=== PATIENT | female | born 1985 | race Caucasian/White ===

== ENCOUNTER 2017-11-06 09:37 | Emergency (ER) | payer OTHER ==
[2017-11-06 11:01] VITALS: BMI 25.8
[2017-11-06] MEDS ORDERED: Lactated Ringer's 1,000 ML IV SCH (11:15)
[2017-11-06 11:50] LABS: SQUAMOUS EPITHIAL 3 /hpf (0-5); URINE BACTERIA OCC (<OCC); URINE BILIRUBIN NEGATIVE (NEGATIVE); URINE BLOOD SMALL (NEGATIVE); URINE CLARITY CLOUDY (Clear); URINE COLOR YELLOW (YELLOW); URINE GLUCOSE (UA) NEG (Normal); URINE LEUKOCYTE ESTERASE SMALL Leu/uL (Negative); URINE PROTEIN NEGATIVE (NEGATIVE); URINE UROBILINOGEN 0.2-1.0 mg/dL (0.2-1.0)
--- NOTE | 2017-11-06 12:50 | US ---
Date of service: 11/06/17 Indication: vaginal spotting at 27 wks ; cervical length only Technique: Limited sonography for cervical length measurement only. Comparison: Ob transvaginal ultrasound performed 10/09/16 Findings: There is a single live intrauterine gestation. The fetus is in transverse position. The placenta is posterior. M-mode imaging demonstrates a heart rate to be 137.2 beats per min. Cervical length measures approximately 4.5 cm. Impression: Cervical length measures approximately 4.5 cm.
== END 2017-11-06 13:45 | disposition home or self-care (01) ==
LOC: H.EROB2 09:37
DX: O26.852 Spotting complicating pregnancy, second trimester (principal); Z3A.27 27 weeks gestation of pregnancy; O26.92 Pregnancy related conditions, unspecified, second trimester; E07.9 Disorder of thyroid, unspecified
CPT/HCPCS: 76817; 81003; 87086; 99283; J7120

== ENCOUNTER 2018-01-25 05:58 | Inpatient (IN) | payer OTHER ==
[2018-01-25 06:50] VITALS: BMI 26.9
[2018-01-25] MEDS ORDERED: Lactated Ringer's 1,000 ML IV ONE (06:52)
[2018-01-25] MEDS ORDERED: Oxytocin 30 UNIT 30 UNITS/500 ML BAG IV ONE (06:55)
[2018-01-25] MEDS ORDERED: OXYTOCIN/0.9 % NS 20 UNIT/1,000 ML BAG IV ONE (06:56)
[2018-01-25] MEDS: Lactated Ringer's 1,000 ML IV ONE ×2 (07:30→13:00)
[2018-01-25] MEDS ORDERED: Fentanyl/Bupivacaine HCl 250 ML EPI ONE (08:30)
[2018-01-25 09:01] LABS: BASO # 0.1 K/uL (0.0-0.2); BASO % 0.3 % (0.0-2.0); HEMOGLOBIN 13.2 g/dL (12.0-16.0); LYMPH # 1.1 K/uL (1.0-4.3); LYMPH % 5.7 % (20.0-40.0); MEAN CELL VOLUME 90.9 fl (81.0-99.0); MEAN CORPUSCULAR HEMOGLOBIN 29.3 pg (27.0-31.0); MEAN CORPUSCULAR HGB CONC 32.2 g/dL (33.0-37.0); MONO # 0.6 K/uL (0.0-0.8); NEUT # 17.1 K/uL (1.8-7.0); NRBC % 0.1 % (0.0-0.0); PLATELET COUNT 224 K/uL (130-400); RED CELL DISTRIBUTION WIDTH 13.6 % (11.5-14.5); WHITE BLOOD COUNT 18.8 K/uL (4.8-10.8)
[2018-01-25 09:16] LABS: BLOOD UREA NITROGEN 4 mg/dl (7-17); CALCIUM 9.2 mg/dL (8.4-10.2); GFR NON-AFRICAN AMERICAN > 60
[2018-01-25 09:58] LABS: BANDS 3 % (0-2); LYMPHOCYTE 4 % (20-50); MONOCYTE 2 % (0-10); NEUTROPHIL 91 % (42-75); TOTAL CELLS COUNTED 100
[2018-01-25 09:59] LABS: PLATELET ESTIMATE NORMAL (NORMAL)
--- NOTE | 2018-01-25 11:55 | OBPN ---
Datetime: 01/25/2018 11:51 IP Progress Impression: Normal progression of labor IP Procedures: Sterile Vag Exam IP Progress Plan: Continue present management Membranes, Provider: Ruptured Amniotic Fluid Color, Provider: Clear FHR - Baseline A Provider: 120's IP Progress Note Comment: 32 yo at 39+2 wks in labor Anticipate VD NICHD Variability Prov Fetus A: Moderate 6-25bpm Dilatation, Provider: 10 Effacement, Provider: 100 Station, Provider: 1 NICHD Decel Fetus A IP Provider: None
[2018-01-25] MEDS ORDERED: Oxycodone/Acetaminophen 5/325 mg Tab PO PRN (15:12)
[2018-01-25] MEDS ORDERED: Benzocaine/Menthol SPRAY TOP PRN (15:12)
--- NOTE | 2018-01-25 15:24 | OBDS ---
DELIVERY PERSONNEL Delivery Doctor: Benigno MANZANARES Scrub Nurse: beck Soldering Machine Operator Automatic: KIEL Jurado/Violet Cole RN Anesthesiologist: MD Erik Resident: Dr Castillo MATERNAL INFORMATION Delivery Anesthesia: Epidural Medications in Delivery: pitocin Placenta Cultured: No Maternal Complications: None RN Comments: to alive baby boy;apgar9/9; with complete delivery of placenta; lacerations repair ed; uneventful delivery Provider Comments: Pt progressed to complete and delivered a viable male infant in OA position throu gh clear fluid at 1448. Apgars 9 and 9. Wt 3070 gms, 6#12.2. Cord doubly clamped and FOB cut the c ord. Cord blood collected. 2% lidocaine was injected into vagina and perineum. Interrupted stitch es were placed to close 2 periurthral tears, (one to the right and one directly above the urethra). 2-0, 3-0 rapide and 3-0v were used to repair second degree tear. Pt and baby tolerated procedure wel l. No complications. EBL 100mL LABOR SUMMARY EDC: 01/30/2018 00:00 No. Babies in Womb: 1 Attempted: No Labor Anesthesia: Epidural LABOR INFORMATION Onset of Labor: 01/25/2018 04:30 Complete Dilatation: 01/25/2018 11:45 Other Ripening Agents: na Oxytocin: N/A Group B Beta Strep: Negative Antibiotics # of Doses: na Antibiotics Time of Last Dose: na Steroids Given: None Reason Steroids Not Administered: Not Applicable MEMBRANES Membranes Rupture Method: Spontaneous Rupture of Membranes: 01/25/2018 06:00 Length of Rupture (hrs): 8.80 Amniotic Fluid Color: Clear Amniotic Fluid Amount: Small Amniotic Fluid Odor: Normal STAGES OF LABOR Stage 1 hrs: 7 Stage 1 min: 15 Stage 2 hrs: 3 Stage 2 min: 3 Stage 3 hrs: 0 Stage 3 min: 3 Total Time in Labor hrs: 10 Total Time in Labor min: 21 VAGINAL DELIVERY Episiotomy: None Laceration Extension: Second Degree Laceration Type: Vaginal Other Laceration: two small periurethral tear Laceration Repair: Yes Laceration Repair Note: 2% lidocaine was injected into vagina and perineum. Interrupted stitches w ere placed to close 2 periurthral tears, (one to the right and one directly above the urethra). 2-0, 3-0 rapide and 3-0v were used to repair second degree tear. Initial Vag Sponge Count: 6 Final Vag Sponge Count: 6 Initial Vag Sharps Count: 4 Final Vag Sharps Count: 4 Sponge Count Correct: Yes Sharps Count Correct: Yes Count Comment: correct count BABY A INFORMATION Delivery Date/Time: 01/25/2018 14:48 Born in Route : No : N/A Forceps: N/A Vacuum Extraction: N/A Shoulder Dystocia : No SHOULDER DYSTOCIA BABY A Delivery Date/Time: 01/25/2018 14:48 PRESENTATION/POSITION BABY A Presentation: Cephalic Cephalic Presentation: Vertex Vertex Position: Left Occipital Anterior Breech Presentation: N/A PLACENTA INFORMATION BABY A Placenta Delivery Time : 01/25/2018 14:51 Placenta Method of Delivery: Spontaneous Placenta Status: Delivered SCORES BABY A Heart Rate 1 min: >100 bpm Resp Effort 1 min: Good Cry Reflex Irritability 1 min: Cough or Sneeze or Pulls Away Muscle Tone 1 min: Active Motion Color 1 min: Body [place], Extremities Blue SCORE 1 MIN: 9 Heart Rate 5 min: >100 bpm Resp Effort 5 min: Good Cry Reflex Irritability 5 min: Cough or Sneeze or Pulls Away Muscle Tone 5 min: Active Motion Color 5 min: Body [place], Extremities Blue SCORE 5 MIN: 9 INFANT INFORMATION BABY A Gestational Age at Delivery: 39.0 Gestational Status: Term Infant Outcome : Liveborn Condition : Stable Infant Sex: Male IDENTIFICATION/MEDS BABY A ID Band Number: [id number] ID Band Location: Left Leg; Left Arm WEIGHT/LENGTH BABY A Birthweight (gms): 3070 Weight (lb): 6 Weight (oz): 12 CORD INFORMATION BABY A No. Cord Vessels: 3 Nuchal Cord : Around Neck x1, Loose Nuchal Cord Other: na True Knot: na Infant Cord pH Baby Arterial: na Infant Cord pH Baby Venous: na Cord Blood Taken: Yes Banking/Donate Info: na Suction: None
[2018-01-25] MEDS: Levothyroxine 50 MCG TAB PO SCH (20:13)
[2018-01-26 06:15] LABS: BASO % 0.1 % (0.0-2.0); EOS # 0.2 K/uL (0.0-0.7); HEMOGLOBIN 11.1 g/dL (12.0-16.0); LYMPH # 2.5 K/uL (1.0-4.3); LYMPH % 15.8 % (20.0-40.0); MEAN CELL VOLUME 90.3 fl (81.0-99.0); MEAN CORPUSCULAR HEMOGLOBIN 29.5 pg (27.0-31.0); MEAN CORPUSCULAR HGB CONC 32.6 g/dL (33.0-37.0); MEAN PLATELET VOLUME 9.2 fl (7.2-11.7); MONO # 1.3 K/uL (0.0-0.8); MONO % 8.1 % (0.0-10.0); NEUT # 12.1 K/uL (1.8-7.0); RBC 3.76 Mil/uL (3.80-5.20); RED CELL DISTRIBUTION WIDTH 13.8 % (11.5-14.5); WHITE BLOOD COUNT 16.1 K/uL (4.8-10.8)
[2018-01-26] MEDS: Levothyroxine 50 MCG TAB PO SCH (06:18)
--- NOTE | 2018-01-26 12:05 | OBPPN ---
Datetime: 01/26/2018 09:35 PP Pain Prov: Within normal limits PP Nausea Prov: Denies PP Flatus Prov: Yes PP BM Prov: Yes PP Breasts Prov: Normal PP Heart Prov: Normal PP Lungs Prov: Normal PP Abdomen/Uterus Prov: Normal PP Lochia Prov: Normal PP Vulva/Perineum Prov: Normal PP CVA Tenderness Prov: Normal PP Extremities Prov: Normal PP Progress Prov: Normal PP Impression Prov: Normal progression PP Plan Prov: Continue present management PP Progress Note Prov: H/H A: S/P day 1 PLAN cont post care anticipate discharge in AM
[2018-01-26] MEDS ORDERED: Influenza Vaccine (5 YR UP)/PF 60 MCG/0.5 ML SYR IM ONE (12:14)
--- NOTE | 2018-01-26 12:29 | OBADHP ---
Datetime: 01/25/2018 11:51 Amniotic Fluid Color, Provider: Clear Membranes, Provider: Ruptured Datetime: 01/25/2018 06:45 Admit Comment, IP Provider: Patient admitted in labor. Patient is a @ 39.2 wks with painful con tractions, no leaking, no vaginal bleeding, +FM. Patient denies antepartum problems, no medical probl ems, no surgical history, no allergies VE=/-1 FHR = 125 mod kristie, +accels, no decels TOCO = montserrat q 2-3 mins A/P 1. Patient admitted in labor. Start IVF, CBC/type and screen 2. Patient offered pain management 3. CEFM and TOCO 4. Re-evaluate as needed Pelvic Type - PN: Adequate Extremities - PN: Normal Abdomen - PN: Normal Back - PN: Normal Breast - PN: Normal Lungs - PN: Normal Heart - PN: Normal Thyroid - PN: Normal Neurologic - PN: Normal HEENT - PN: Normal General - PN: Normal FHR - Baseline A Provider: 125 Contraction Comments Provider: q 2 Vital Signs Provider: Reviewed; Within Normal Limits IP Chief Complaint: Uterine contractions NICHD Variability Prov Fetus A: Moderate 6-25bpm NICHD Accel Fetus A IP Provider: [id number] NICHD Decel Fetus A IP Provider: None Dilatation, Provider: 5 Effacement, Provider: 50 Station, Provider: -1 Genitourinary Exam: Normal DTRs - PN: Normal EGA AdmitDate IP: 39.2 IP Adm Impression: Term, intrauterine IP Admit Plan: Admit to unit
[2018-01-26] MEDS: Prenatal Multivit/Folic Acid/Iron Tab PO SCH (12:49)
[2018-01-27] MEDS: Levothyroxine 50 MCG TAB PO SCH (06:10)
--- NOTE | 2018-01-27 08:42 | OBPPN ---
Datetime: 01/27/2018 08:39 PP Pain Prov: Within normal limits PP Nausea Prov: Denies PP Flatus Prov: Yes PP Breasts Prov: Normal PP Heart Prov: Normal PP Lungs Prov: Normal PP Abdomen/Uterus Prov: Normal PP Lochia Prov: Normal PP Vulva/Perineum Prov: Normal PP CVA Tenderness Prov: Normal PP Extremities Prov: Normal PP Impression Prov: Normal progression PP Plan Prov: Discharge PP Progress Note Prov: Patient doing well cleared for discharge
--- NOTE | 2018-01-27 08:43 | OBDCSUM ---
Datetime: 01/27/2018 08:41 Discharged to, Provider: Home Follow up at, Provider: MD Tomy Disch Instr Activity: Normal activity Disch Instr Diet: Regular Discharge Instructions, Provider: Routine instructions given Discharge Diagnosis, Provider: Term Delivered Follow up in weeks, Provider: 6 weeks Disch Referrals: None Contraception discussed, Prov: Yes Disch Activity Restrictions: No sexual activity; Nothing in vagina - [address], tampons, douche Contraception after Delivery: Undecided
[2018-01-27] MEDS: Prenatal Multivit/Folic Acid/Iron Tab PO SCH (09:09)
[2018-01-27 18:01] VITALS: BP 110/62; PULSE 87; RESP 18; TEMP 98.6; O2SAT 97
== END 2018-01-27 13:30 | disposition home or self-care (01) | DRG 807 ==
LOC: H.EROB2 05:58 → H.L&D 06:52 → H.OB/GYN 17:44
PROVIDERS: ADMIT Obstetrics & Gynecology; ATTEND Obstetrics & Gynecology
PROC: 0KQM0ZZ Repair Perineum Muscle, Open Approach (ICD-10-PCS; principal; 2018-01-25)
PROC: 10E0XZZ Delivery of Products of Conception, External Approach (ICD-10-PCS; 2018-01-25)
PROC: 4A1HXCZ Monitoring of Products of Conception, Cardiac Rate, External Approach (ICD-10-PCS; 2018-01-25)
DX: O69.81X0 Labor and delivery complicated by cord around neck, without compression, not applicable or unspecified (principal); Z37.0 Single live birth; O70.1 Second degree perineal laceration during delivery; Z3A.39 39 weeks gestation of pregnancy